=== PATIENT | female | born 1955 | race Caucasian/White ===

== ENCOUNTER 2017-01-10 10:01 | Inpatient (IN) | payer OTHER ==
--- NOTE | ~2017-01-10 | EGD ---
EGD REPORT [facility] [address] [address] NAME: BRENDA ÁLVAREZ : 51 STATUS : ADM IN PAT#: [id number] AGE: 61 ADM/REG DATE : 01/10/17 MR#: [id number] REPORT SERV DATE: 01/11/17 DICTATED BY: DANIE LEMUS DATE: 01/11/17 REPORT STATUS : Draft TRANSCRIBED BY: [facility] DATE: 01/11/17 Endoscopy Center Patient Name: Brenda Álvaerz. Date of : 1955 Attending MD: DANIE LEMUS MD Procedure Date No Time: 01/11/2017 Procedure: Upper EUS Indications: Suspected mass in pancreas on CT scan Medicines: Monitored Anesthesia Care Complications: No immediate complications. Estimated blood loss: Minimal. Procedure: After obtaining informed consent, the endoscope was passed under direct vision. Throughout the procedure, the patient's blood pressure, pulse, and oxygen saturations were monitored continuously. The Endoscope was introduced through the mouth, and advanced to the second part of duodenum. The Endoscope was introduced through the mouth, and advanced to the second part of duodenum. The upper EUS was accomplished without difficulty. The patient tolerated the procedure well. Findings: Endosonographic Finding : There was no sign of significant endosonographic abnormality in the common bile duct which measured 6 mm. No stones and no biliary sludge were identified. There was no sign of significant endosonographic abnormality in the ampulla. No masses were identified. A round mass was identified in the pancreatic body. The mass was hypoechoic. The mass measured 27 mm by 24 mm in maximal cross-sectional diameter. The endosonographic borders were poorly-defined. Fine needle aspiration was performed. Color Doppler imaging was utilized prior to needle puncture to confirm a lack of significant vascular structures within the needle path. Ten passes were made with the 22 gauge needle using a transgastric approach. Some passes were made with a stylet. A content management specialist was present and performed a preliminary cytologic examination. Final cytology results are pending. Estimated blood loss was minimal. The pancreatic duct proximal to the mass was dilated to 7 mm. No other abnormalities seen in the pancreas. A few enlarged lymph nodes were visualized in the celiac region (level 20). The largest measured 7 mm. The nodes were oval, hypoechoic and had well defined margins. Endosonographic imaging of the visualized portion of the liver showed no abnormalities. A limited doppler examination was performed and revealed no significant EGD REPORT [address] [address] NAME: BRENDA ÁLVAREZ : 51 STATUS : ADM IN [facility]#: [id number] AGE: 61 ADM/REG DATE : 01/10/17 MR#: [id number] REPORT SERV DATE: 01/11/17 DICTATED BY: DANIE LEMUS DATE: 01/11/17 REPORT STATUS : Draft TRANSCRIBED BY: [employer] DATE: 01/11/17 vascular abnormalities, although it appeared that the celiac axis was very close/touching the mass that was noted in the pancreas. Impression: - A mass was identified in the pancreatic body. FNA biopsy performed. - A few enlarged lymph nodes were visualized in the celiac region (level 20). Recommendation: - [facility]. - Await cytology results. Procedure Code(s): --- Professional --- 94712, Esophagogastroduodenoscopy, flexible, transoral; with transendoscopic ultrasound-guided intramural or transmural fine needle aspiration/biopsy(s) (includes endoscopic ultrasound examination of the esophagus, stomach, and either the duodenum or a surgically altered stomach where the jejunum is examined distal to the anastomosis) Diagnosis Code(s): --- Professional --- K86.8, Other specified diseases of pancreas R59.0, Localized enlarged lymph nodes R93.3, Abnormal findings on diagnostic imaging of other parts of digestive tract CPT copyright 2013 [employer]. All rights reserved. The codes documented in this report are preliminary and upon study assistant review may be revised to meet current compliance requirements. Danie Lemus MD DANIE LEMUS MD 01/11/2017 11:09 AM This report has been signed electronically. Number of Addenda: 0 Note Initiated On: 01/11/2017 9:52 AM [address] [address]
--- NOTE | ~2017-01-10 | HP ---
History And Physical [address] [facility] [place]. [address] NAME: BALBINA ÁLVAREZ : 51 STATUS : ADM IN PAT#: [id number] AGE: 61 ADM/REG DATE : 01/10/17 MR#: [id number] REPORT SERV DATE: 01/10/17 DICTATED BY: DATE: REPORT STATUS : Draft TRANSCRIBED BY: MODL DATE: 01/10/17 DATE OF ADMISSION: 01/10/2017 POINT OF ENTRY: Transfer from [facility]. CHIEF COMPLAINT: New diagnosis of pancreatic mass, highly suspicious for pancreatic carcinoma. GI consult to include EUS/biopsy. PRIMARY CARE PHYSICIAN: Dr. Dayday Álvarez, [place], [place]. PRIMARY PAIN MANAGEMENT PHYSICIAN: Dr. Dayday Bocanegra, [place], [place]. HISTORY OF PRESENTING ILLNESS: The patient's history was obtained through interviewing the patient with assistance through video remote interpreting as the patient suffers from complete hearing loss coupled with review of medical records provided by [facility]. The patient is a 61-year-old female who presented to [facility] on 01/08/2017 with complaints of severe abdominal pain. The patient described the pain as midepigastric, radiating to her back, accompanied by nausea and vomiting. The patient also reported unintentional weight loss of approximately 50 pounds over the past several months. A CT of the abdomen and pelvis obtained at [facility] prior to transfer reported a 5 x 3.2 cm proximal pancreatic body mass lesion with distal pancreatic ductal dilatation. Findings presumed to represent pancreatic carcinoma until proven otherwise. There is clear encasement of the celiac artery extending towards the superior mesenteric artery without definite encasement. The patient was transferred to [facility] for further diagnostic evaluation regarding suspected pancreatic carcinoma. The patient reported suffering from "very mild" abdominal discomfort over the past several months that has continued to progressively worsen. The patient stated she was diagnosed with "an ulcer" and was sent to Pain Management for further treatment. The patient stated that pain management was ineffective and the abdominal pain became unmanageable despite home pain medications. The patient now describes upper abdominal pain radiating through to back as severe and uncontrolled. The patient also reported persistent nausea with intermittent vomiting and significantly decreased appetite. The patient states she has lost approximately 50 pounds over the past several months with 20 of those pounds having been lost over the past two weeks secondary to inability to consume oral intake without severe nausea and vomiting. REVIEW OF SYSTEMS: CONSTITUTIONAL: No recent fever or sweats. Positive for unintentional weight loss of approximately 50 pounds over the past several months. History And Physical [address] [place]. [address] NAME: BALBINA ÁLVAREZ : 51 STATUS : ADM IN [facility]#: [id number] AGE: 61 ADM/REG DATE : 01/10/17 MR#: [id number] REPORT SERV DATE: 01/10/17 DICTATED BY: DATE: REPORT STATUS : Draft TRANSCRIBED BY: MODL DATE: 01/10/17 EYES: No blurred or double vision. No glaucoma or cataracts. HENT: Positive for complete hearing loss since age 1 or 1 years old. CARDIOVASCULAR: No chest pain, palpitations, syncopal or near syncopal episodes. RESPIRATORY: No recent cough, wheezing, or upper respiratory infection. GASTROINTESTINAL: Positive for nausea with intermittent vomiting and intractable upper abdominal pain times several weeks. No melena, hematochezia, or diarrhea. Positive for opioid-induced constipation. MUSCULOSKELETAL: Positive rheumatoid arthritis, chronic low back pain. INTEGUMENT: Negative for rash or nonhealing wounds. NEUROLOGIC: No history of stroke, TIA, seizure, or gait disturbance. HEMATOLOGIC: No history of anemia. PSYCHIATRIC: History of anxiety. : No dysuria or hematuria. ENDOCRINE: Positive for thyroid disease, history of goiter. HOME MEDICATIONS: 1. Xanax 0.5 mg tablet p.o. twice daily. 2. Super B complex tablet one tablet p.o. daily. 3. Vitamin B12 at 1000 mcg tablet p.o. daily. 4. Valium 5 mg tablet p.o. daily. 5. Premarin 0.3 mg tablet p.o. daily. 6. Levothyroxine 175 mcg tablet p.o. daily. 7. Movantik 25 mg tablet p.o. daily. 8. Roxicodone 15 mg tablet p.o. every four hours as needed. 9. Iron 360 one tab p.o. daily. ALLERGIES: NO KNOWN MEDICATION ALLERGIES. SOCIAL HISTORY: The patient has been for 37 years. She and her suffer from complete hearing loss. They have three children. The patient is retired from [email or web address]. The patient denies ever having used tobacco or alcohol. FAMILY HISTORY: The patient's mother is 85 years old. The patient has been estranged for approximately two years. Health history is unknown. The patient's father at age 56 due to suicide. The patient has one brother with leukemia. PAST MEDICAL HISTORY: 1. Anxiety. 2. Chronic pain related to back and rheumatoid arthritis. 3. Opioid-induced constipation. 4. Hypothyroidism with history of goiter. 5. Deafness. 6. Rheumatoid arthritis. 7. Back pain. 8. Goiter in 1988. 9. Unintentional weight loss. History And Physical [address] [address] NAME: BALBINA ÁLVAREZ : 51 STATUS : ADM IN [facility]#: [id number] AGE: 61 ADM/REG DATE : 01/10/17 MR#: [id number] REPORT SERV DATE: 01/10/17 DICTATED BY: DATE: REPORT STATUS : Draft TRANSCRIBED BY: MODL DATE: 01/10/17 PAST SURGICAL HISTORY: 1. Cholecystectomy. 2. Back surgery in 2004. 3. Ankle surgery in 1993 and 1994, right ankle. 4. Left knee replacement in 2006. 5. The patient is pending back surgery under the care of Dr. Timo Thomas. LABORATORY DATA: Laboratory tests to include CBC, PT/PTT, CMP, magnesium, phosphorus, TSH pending. ASSESSMENT AND PLAN: 1. Suspected pancreatic carcinoma. CT of abdomen and pelvis obtained at [facility] on 01/07/2017 reported 5 x 3.2 cm proximal pancreatic body mass lesion with distal pancreatic ductal dilatation with clear encasement of the celiac artery extending towards SMA without definite encasement. Carcinoembryonic antigen was obtained on 01/09/2017, result was reported to be elevated at 5.0. Cancer antigen 19-9 was also obtained at [facility] prior to transfer and lab result has been requested. GI has been consulted for EUS/biopsy as part of diagnostic workup for definitive diagnosis in the setting of new pancreatic mass. Mesenteric Doppler is pending due to CT of abdomen and pelvis reporting clear encasement of celiac artery extending towards the SMA. Vascular Surgery will be consulted if indicated per mesenteric Doppler results. Based on definitive diagnosis, Oncology may also be consulted during this admission. 2. Intractable upper abdominal pain. This is most likely related to pancreatic mass. The patient is n.p.o. for now pending mesenteric Doppler and EUS/biopsy. Clear liquid diet will be resumed once n.p.o. status has been discontinued. The patient will receive p.o. and IV pain medications as needed to gain reasonable pain control. 3. Nausea with intermittent vomiting. This is most likely secondary to abdominal pain in the setting of new diagnosis of pancreatic mass. Antiemetics will be available as needed to assist in controlling these symptoms. 4. History of dysphagia. The patient underwent a barium swallow on 12/01/2015, result was negative and the patient was cleared for regular diet at that time. 5. Chronic anxiety. Continue home medications to include Xanax and Valium. 6. Chronic pain. This is multifactorial to include intractable abdominal pain over the past several weeks, chronic back pain, and rheumatoid arthritis. The patient is under the outpatient care of Dr. Bocanegra in [place], [place]. The patient is currently on Roxicodone every four hours as needed. The patient states she was also on hydrocodone but that medication was discontinued per her request on 12/20/2016 secondary to ongoing constipation. 7. Unintentional weight loss. The patient reports 50-pound weight loss over the past several months with 20 of those pounds occurring over the past two weeks. This is related to inability to maintain adequate oral intake secondary to nausea, increased abdominal pain associated with eating and intermittent vomiting. Nutrition has been consulted. I's and O's will be obtained daily along with weights. Clear liquid diet for now. May need to assess for alternative means of nutrition depending on definitive diagnosis. 8. Deep venous thrombosis prophylaxis. Knee-high LEANDRA hose for now pending procedures, History And Physical [address] [address] NAME: BALBINA ÁLVAREZ : 51 STATUS : ADM IN [facility]#: [id number] AGE: 61 ADM/REG DATE : 01/10/17 MR#: [id number] REPORT SERV DATE: 01/10/17 DICTATED BY: DATE: REPORT STATUS : Draft TRANSCRIBED BY: ALESSANDRA DATE: 01/10/17 then transition to heparin. 9. Opioid-induced constipation. Continue the patient's home dose of Movantik. The care of this patient will be transferred to the service of Dr. Dominic John. [facility]/ALESSANDRA ZHEN August / [id number] CC: Dominic John II, MD
--- NOTE | ~2017-01-10 | DS ---
Discharge Summary [address] [place]. [address] NAME: BALBINA KATZ : 51 STATUS : DIS IN PAT#: [id number] AGE: 61 ADM/REG DATE : 01/10/17 MR#: [id number] REPORT SERV DATE: 01/14/17 DICTATED BY: DATE: REPORT STATUS : Draft TRANSCRIBED BY: MODL DATE: 01/13/17 ADMISSION DATE: 01/10/2017 DISCHARGE DATE: 01/13/2017 DISCHARGE DIAGNOSES: 1. Pancreatic cancer, new diagnosis. 2. Intractable abdominal pain. 3. Type 2 diabetes mellitus, new diagnosis. 4. Chronic pain. 5. Constipation, resolved. 6. Complete hearing loss. 7. Hypothyroidism, chronic. 8. Anxiety, chronic. CONSULTATIONS: 1. Dr. Norbert Frederick, [facility], 01/12/2017. 2. Dr. Head, Gastroenterology. PERTINENT TESTS AND PROCEDURES: 1. Upper EUS 01/11/2017, impression: Mass identified in the pancreatic body. FNA biopsy performed. A few enlarged lymph nodes were visualized in the celiac region. 2. Mesenteric Doppler 01/10/2017, impression: No Doppler evidence of mesenteric ischemia. 3. KUB 01/12/2017, impression: No acute intraabdominal process. Bowel gas pattern is normal. No organomegaly or soft tissue mass is seen. 4. CT of the abdomen, pelvis, and chest with and without contrast, 01/13/2017, impression:. a. 4.6 cm pancreatic body mass engulfs SMV, the celiac artery, and the proximal hepatic and splenic arteries. There are small metastatic nodes adjacent. No hepatic metastatic disease or other metastasis demonstrated. b. Left breast nodules, for which correlation with mammogram and ultrasound are recommended. c. Fluid density abnormality at the T5 through T6 level, right paraspinous likely represents a benign neurenteric cyst. POINT OF ENTRY: Transfer from [facility]. CHIEF COMPLAINT UPON ADMISSION: New diagnosis of pancreatic mass highly suspicious for pancreatic carcinoma. GI consult to include EUS/biopsy. HOSPITAL COURSE: Please refer to history and physical dated 01/10/2017 provided by Aida Sullivan, nurse practitioner, for complete details pertaining to patient's initial presentation upon admission and health history. Please also refer to consultation dated 01/12/[address] Norbert Frederick. Briefly, the patient is a 61-year-old female with a past medical history to include Discharge Summary [address] [address] NAME: BALBINA KATZ : 51 STATUS : DIS IN PAT#: [id number] AGE: 61 ADM/REG DATE : 01/10/17 MR#: [id number] REPORT SERV DATE: 01/14/17 DICTATED BY: DATE: REPORT STATUS : Draft TRANSCRIBED BY: MODL DATE: 01/13/17 rheumatoid arthritis, hypothyroidism, chronic back pain, chronic anxiety, and complete hearing loss, who developed abdominal pain approximately two to three months prior to this admission. The patient presented to [facility] where she had a CT scan that showed a 5 x 3 x 2 cm proximal pancreatic body mass causing distal pancreatic ductal dilatation consistent with pancreatic carcinoma. There was also concern for encasement of the celiac artery extending toward the superior mesenteric artery without definite encasement. The patient was transferred to [facility] for further evaluation and treatment to include GI consult and EUS with biopsy. 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 Dr. Norbert Frederick, [facility] was consulted for abdominal pain and pancreatic cancer. Diagnostic evaluation included repeat CT of the abdomen and pelvis with pancreatic protocol to better evaluate the extent of the mass. A CT of the chest to rule out lung metastasis was also obtained. CT scan results reported pancreatic mass clearly encasing major vessels. This mass is not resectable and therefore not curable. Initial consultation requested for Dr. Hoffman of Surgical Oncology to see was canceled secondary to findings on repeat CT. Dr. Frederick met with the patient and family to discuss findings of CT scan. The patient will be discharged home today. The patient will meet with family at home over the next couple of weeks to discuss the patient's wishes for future plan of care. The patient will follow up with Dr. Frederick at [facility] in two weeks. 1. Pancreatic cancer. This is a new diagnosis during this admission. The patient has a pancreatic mass encasing major vessels. Mass is not resectable, therefore not curative. The patient will DC home today and follow up with Dr. Frederick in two weeks. Future care plan may include trial of chemotherapy; however, patient is undecided at this time. 2. Intractable abdominal pain. The patient did not tolerate Dilaudid TITLE I COORDINATOR pump due to increased nausea. The patient will be discharged home with prescription for MS Contin 15 mg tablet p.o. every 12 hours and oxycodone 15 mg immediate release every four hours as needed for breakthrough pain. At the time of discharge, the patient's pain is adequately controlled on this regimen. 3. Type 2 diabetes mellitus. The patient had no history of diabetes. This is a new diagnosis during this admission. A1c was reported to be 10.8. Blood glucoses range between 140 and 180. Onset is possibly related to pancreatic disease. The patient was provided prescription for metformin 500 mg p.o. b.i.d., and is to follow up with PCP of her choice within two weeks for continued management. 4. Chronic pain. This is multifactorial to include abdominal pain related to pancreatic cancer, history of rheumatoid arthritis, and back issues. The patient has chronic-back issues and was pending surgery per Dr. Timo Thomas before this admission. Continue pain medications as needed. 5. Constipation, resolved. This is opioid induced. Continue aggressive bowel regimen at Discharge Summary [address] [place]. [address] NAME: BALBINA KATZ : 51 STATUS : DIS IN PAT#: [id number] AGE: 61 ADM/REG DATE : 01/10/17 MR#: [id number] REPORT SERV DATE: 01/14/17 DICTATED BY: DATE: REPORT STATUS : Draft TRANSCRIBED BY: ALESSANDRA DATE: 01/13/17 home to avoid future opioid induced constipation. 6. Complete hearing loss. The patient was provided live binder stripper machine or video remote binder stripper machine during each rounding visit during this admission. 7. Hypothyroidism, chronic. Continue home dose of levothyroxine. 8. Chronic anxiety. Continue home medications. DISCHARGE CONDITION: At the time of discharge, the patient is hemodynamically stable. DISCHARGE DIET: Clear liquid diet. Advance as tolerated. The patient instructed to consume foods that she can digest without increasing nausea. The patient will have difficult time adhering to strict ADA diet due to intractable abdominal pain and nausea. DISCHARGE MEDICATIONS: 1. Xanax 0.5 mg tablet p.o. twice daily. 2. Vitamin B12 of 1000 mcg tablet p.o. daily. 3. Levothyroxine 175 mcg tablet p.o. daily. 4. Movantik 25 mg tablet p.o. daily. 5. MiraLAX 17 g p.o. daily. 6. Tylenol 325 mg tablet, take two tablets p.o. every four hours as needed. 7. Valium 5 mg tablet p.o. daily as needed. 8. Zofran 4 mg tablet p.o. every four hours as needed. 9. Senokot two tablets p.o. at bedtime as needed. 10.Roxicodone 15 mg tablet p.o. every four hours as needed for moderate to severe breakthrough pain, hold for sedation. 11.Estrogen conjugated 0.3 mg tablet, do not take this medication due to new diagnosis of pancreatic cancer. 12.Iron 360 one tab p.o. daily. 13.Super B Complex 1 tablet p.o. daily. 14.MS Contin 15 mg tablet p.o. every 12 hours. 15.Oxycodone 15 mg tablet p.o. every four hours as needed. DISCHARGE INSTRUCTIONS: 1. Follow up with Dr. Frederick, [facility] in two weeks. 2. Follow up with primary care provider of patient's choice to manage new diagnosis of type 2 diabetes. PRIMARY ONCOLOGIST: Dr. Norbert Frederick. PRIMARY PAIN MANAGEMENT: Dr. Bocanegra [place], [place]. DICTATED BY: ZHEN August [facility]/ALESSANDRA Discharge Summary [address] [address] NAME: BALBINA KATZ : 51 STATUS : DIS IN PAT#: [id number] AGE: 61 ADM/REG DATE : 01/10/17 MR#: [id number] REPORT SERV DATE: 01/14/17 DICTATED BY: DATE: REPORT STATUS : Draft TRANSCRIBED BY: MODL DATE: 01/13/17 ZHEN August / [id number] CC: MD Dayday Hawkins II, M.D.
--- NOTE | ~2017-01-10 | CN ---
Consultation Report [facility] [address] [place]. [address] NAME: BALBINA ÁLVAREZ : 51 STATUS : ADM IN PAT#: [id number] AGE: 61 ADM/REG DATE : 01/10/17 MR#: [id number] REPORT SERV DATE: 01/12/17 DICTATED BY: NORBERT FREDERICK DATE: 01/12/17 REPORT STATUS : Draft TRANSCRIBED BY: MODL DATE: 01/12/17 HEMATOLOGY/ONCOLOGY INITIAL CONSULTATION DATE OF CONSULTATION: 01/12/2017 Consult regarding pancreatic cancer. CHIEF COMPLAINT: Abdominal pain and pancreatic cancer. HISTORY OF PRESENT ILLNESS: Ms. Álvarez is a pleasant 61-year-old white woman with past medical history of rheumatoid arthritis, hypothyroidism, and chronic back pain, who developed abdominal pain starting approximately two to three months ago. The pain is located in the epigastric and periumbilical area radiating to her back. The pain has progressively worsened prompting her to see her primary care physician several times. She was initially diagnosed with an ulcer, but the pain did not improve with treatment. She went to [facility], where she had a CT. The CT showed a 5 x 3.2 cm proximal pancreatic body mass causing distal pancreatic ductal dilation consistent with pancreatic carcinoma. There is encasement of the celiac artery extending toward the superior mesenteric artery without definite encasement. There are also prominent lymph nodes in the peripancreatic area that could be involved with metastatic carcinoma. The patient was transferred to [facility] for endoscopic ultrasound and biopsy. She had the endoscopic ultrasound performed on 01/11/2017 showing a 27 x 24 mm pancreatic body mass with borders that are poorly defined. A Doppler examination was performed and showed no significant vascular abnormalities, although the mass does appear to encroach and is very close or touches the celiac axis. No encasement seen. A few enlarged lymph nodes were visualized. A biopsy was performed and preliminary results are positive for pancreatic adenocarcinoma. Oncology is consulted for her newly diagnosed pancreatic cancer. Currently Ms. Álvarez continues to report uncontrolled abdominal pain. She had to be placed on a Dilaudid CUPOLA TENDER HELPER today. She was recently started on the medication and the pain is certainly improved currently. She has also been seen by Palliative Care, who is helping manage her pain. She reports some nausea and poor appetite over the past approximately three months with a 50-pound weight loss over that period of time. She denies diarrhea and is currently experiencing constipation. She denies cough, shortness of breath, chest pain, pruritus, jaundice, lower extremity swelling, headaches, or vision change. Her rheumatoid arthritis has been stable. She has been taking oxycodone for her chronic pain, managed by Pain Management. She has had opioid-induced constipation and has been on Movantik. She also has history of anxiety, which has been stable despite this difficult diagnosis. PAST MEDICAL HISTORY: 1. Rheumatoid arthritis. 2. Hypothyroidism. 3. Chronic pain related to back and rheumatoid arthritis. 4. Opioid-induced constipation. 5. Deafness, anxiety. Consultation Report [address] [place]. [address] NAME: BALBINA ÁLVAREZ : 51 STATUS : ADM IN [facility]#: [id number] AGE: 61 ADM/REG DATE : 01/10/17 MR#: [id number] REPORT SERV DATE: 01/12/17 DICTATED BY: NORBERT FREDERICK DATE: 01/12/17 REPORT STATUS : Draft TRANSCRIBED BY: ALESSANDRA DATE: 01/12/17 6. Hyperglycemia with possible diabetes. PAST SURGICAL HISTORY: 1. Cholecystectomy. 2. Back surgery in 2004. 3. Ankle surgery in 1993 and 1994. 4. Left knee replacement in 2006. 5. Pending back surgery under the care of Dr. Timo Thomas. FAMILY HISTORY: The patient's father at 56 from suicide. The patient's brother from leukemia. No other history of cancer in the family. SOCIAL HISTORY: She is . She has three children. She is retired from [email or web address]. The patient denies tobacco, alcohol, or illicit drug use. REVIEW OF SYSTEMS: A comprehensive review of systems in 12 or more systems was performed and was negative except for abdominal pain, nausea, anorexia, weight loss, constipation, and anxiety/depression. PHYSICAL EXAMINATION: VITAL SIGNS: Temperature 97.6, pulse 97, respirations 18, blood pressure 147/67, pulse ox of 92% on room air. GENERAL: A pleasant, well-developed, obese, but with recent weight loss white woman in no acute distress. HEENT: Pupils equal, round, and reactive to light. Extraocular movements were intact. Conjunctivae and lids normal. Sclerae anicteric. Moist mucous membranes. Oropharynx clear without exudate, masses, mucositis, or thrush. NECK: Supple. No JVD. Trachea midline. LYMPHATICS: No cervical, supraclavicular, or axillary lymphadenopathy. CHEST: Normal respiratory effort. Clear to auscultation bilaterally without wheezes, rhonchi, or crackles. CARDIOVASCULAR: Regular rate and rhythm. No murmurs, rubs, or gallops. ABDOMEN: Soft. Tender to palpation in the epigastric/periumbilical area. Nondistended. Positive bowel sounds. No clubbing, cyanosis, or edema. SKIN: Warm, dry, intact. No rashes or ecchymoses visualized. No palpable nodules. NEUROLOGIC: Awake alert, oriented. Sensation intact. Strength intact. No focal deficits. PSYCHIATRIC: Awake, alert, and oriented. Appropriate mood and insight. Verbalized understanding of our conversation. LABORATORY DATA: BUN of 3, creatinine of 0.58. CMP, total bilirubin of 0.9. CBC; white blood cell count 6500, hemoglobin 14.6 g/dL, hematocrit 44.5%, platelets of 255,000. CA19-9 at [facility] was reportedly 915. ASSESSMENT AND PLAN: Ms. Álvarez is a 61-year-old white woman with rheumatoid arthritis, Consultation Report [address] [address] NAME: BALBINA ÁLVAREZ : 51 STATUS : ADM IN [facility]#: [id number] AGE: 61 ADM/REG DATE : 01/10/17 MR#: [id number] REPORT SERV DATE: 01/12/17 DICTATED BY: NORBERT FREDERICK DATE: 01/12/17 REPORT STATUS : Draft TRANSCRIBED BY: ALESSANDRA DATE: 01/12/17 hypothyroidism, and chronic back pain, who presented for abdominal pain. Found to have a pancreatic mass that was biopsied consistent with pancreatic cancer prompting consultation. 1. Pancreatic cancer: I have reviewed Ms. Álvarez's records including notes, labs, imaging reports. I personally reviewed her CT images from [facility], which shows a pancreatic body mass that comes close to the celiac axis, but cannot definitively identify encasement. The EUS suggests the tumor abuts the celiac axis without involvement and possible lymph node involvement. If there is no encasement, then the staging would be 2b, and so resectable. I will repeat a CT of the abdomen and pelvis with pancreatic protocol to better evaluate the extent of the mass. We will also get a CT of the chest to rule out lung metastases. I will consult Dr. Hoffman of Surgical Oncology to see if she is a surgical candidate. Hopefully, she will still be a surgical candidate and can give neoadjuvant chemotherapy followed by surgery. We will continue to follow. 2. Pain. Ms. Álvarez's pain was not well controlled and is now on a Dilaudid CUPOLA TENDER HELPER. She is doing much better at this time, but will still talk with GI about a celiac plexus block. I appreciate the consult and allowing me to take part in Ms. Álvarez's care. BRN/MODL Norbert Frederick MD / [id number] CC: MD Dayday Hawkins II, M.D.
[2017-01-10] MEDS ORDERED: X5 PO (11:40)
[2017-01-10] MEDS ORDERED: MOVANTIK25 MG PO (11:40)
[2017-01-10] MEDS ORDERED: ROXICODONE15 MG PO (11:40)
[2017-01-10] MEDS ORDERED: V5 PO (11:40)
[2017-01-10] MEDS ORDERED: LEVOTHYROXIN175 MCG PO (11:41)
[2017-01-10] MEDS ORDERED: SUPER B COMP PO (11:41)
[2017-01-10] MEDS ORDERED: IRON PO (11:41)
[2017-01-10] MEDS ORDERED: PREM.3B PO (11:41)
[2017-01-10] MEDS ORDERED: CYANO1000T PO (11:41)
[2017-01-10 12:57] LABS: BASOPHILS 0.3 %; BASOPHILS ABSOLUTE 0.02 10/3/uL (0.0-0.16); EOSINOPHILS 1.3 %; EOSINOPHILS ABSOLUTE 0.08 10/3/uL (0.0-0.53); HEMATOCRIT 44.9 % (36.0-48.0); HEMOGLOBIN 14.8 g/dL (12.0-16.0); IMMATURE GRANULOCYTES 0.2 %; IMMATURE GRANULOCYTES ABSOLUTE 0.01 10/3/uL (0.0-0.11); LYMPHOCYTES 40.3 %; LYMPHOCYTES ABSOLUTE 2.55 10/3/uL (0.67-4.30); MEAN CORPUSCULAR HEMOGLOB 28.7 pg (26.0-34.0); MEAN CORPUSCULAR VOLUME 87.2 fL (80-100); MONOCYTES 7.9 %; NEUTROPHILS ABSOLUTE 3.17 10/3/uL (2.02-8.40); PLATELET COUNT 219 10/3/uL (150-400); RBC DISTRIBUTION WIDTH 13.6 % (12.0-16.0); RED CELL COUNT 5.15 10/6/uL (4.0-5.6); WHITE BLOOD CELLS 6.3 10/3/uL (4.5-10.5)
[2017-01-10 12:59] LABS: MANUAL DIFF NO %
[2017-01-10 13:07] LABS: PROTIME (NOT ORD) 13.1 SEC (12.0-14.5)
[2017-01-10 13:20] LABS: A/G RATIO 1.1 (0.7-1.9); ALBUMIN 3.5 G/DL (3.5-5.0); ALKALINE PHOSPHATASE 85 U/L (45-117); BUN (BLOOD UREA NITROGEN) 3 MG/DL (6-23); CALCIUM, SERUM 8.7 MG/DL (8.5-10.4); CHLORIDE, SERUM 105 MMOL/L (96-112); CO2 (CARBON DIOXIDE) 33 MMOL/L (24-34); CREATININE 0.57 MG/DL (0.55-1.02); GFR AFRICAN AMERICAN 114 ML/MIN (>=60); GFR NON AFRICAN AMERICAN 99 ML/MIN (>=60); GLOBULIN 3.2 G/DL (2.5-4.1); GLUCOSE, SERUM 174 MG/DL (60-99); PHOSPHORUS, SERUM 3.6 MG/DL (2.5-4.5); POTASSIUM, SERUM 4.4 MMOL/L (3.5-5.3); SGOT(AST) 22 U/L (5-40); SGPT(ALT) 37 U/L (5-65); SODIUM, SERUM 142 MMOL/L (135-148); TOTAL BILIRUBIN 0.9 MG/DL (0-1.2); TOTAL PROTEIN 6.7 G/DL (6.0-8.5); ULTRASENSITIVE TSH 0.704 MCIU/ML (0.358-3.740)
[2017-01-11 06:32] LABS: BASOPHILS 0.3 %; BASOPHILS ABSOLUTE 0.02 10/3/uL (0.0-0.16); EOSINOPHILS 2.6 %; EOSINOPHILS ABSOLUTE 0.15 10/3/uL (0.0-0.53); HEMATOCRIT 44.8 % (36.0-48.0); HEMOGLOBIN 14.7 g/dL (12.0-16.0); IMMATURE GRANULOCYTES 0.2 %; IMMATURE GRANULOCYTES ABSOLUTE 0.01 10/3/uL (0.0-0.11); LYMPHOCYTES ABSOLUTE 2.67 10/3/uL (0.67-4.30); MANUAL DIFF NO %; MEAN CORPUS HGB CONC 32.8 g/dL (32.0-36.0); MEAN CORPUSCULAR HEMOGLOB 28.9 pg (26.0-34.0); MEAN PLATELET VOLUME 10.4 fL (9.2-13.0); MONOCYTES ABSOLUTE 0.64 10/3/uL (0.21-1.20); NEUTROPHILS 39.9 %; NEUTROPHILS ABSOLUTE 2.32 10/3/uL (2.02-8.40); PLATELET COUNT 234 10/3/uL (150-400); RBC DISTRIBUTION WIDTH 13.6 % (12.0-16.0); RED CELL COUNT 5.09 10/6/uL (4.0-5.6); WHITE BLOOD CELLS 5.8 10/3/uL (4.5-10.5)
[2017-01-11 06:49] LABS: BUN (BLOOD UREA NITROGEN) 4 MG/DL (6-23); CALCIUM, SERUM 8.5 MG/DL (8.5-10.4); CHLORIDE, SERUM 106 MMOL/L (96-112); CO2 (CARBON DIOXIDE) 30 MMOL/L (24-34); CREATININE 0.53 MG/DL (0.55-1.02); GFR AFRICAN AMERICAN 117 ML/MIN (>=60); GFR NON AFRICAN AMERICAN 101 ML/MIN (>=60); GLUCOSE, SERUM 158 MG/DL (60-99); POTASSIUM, SERUM 3.6 MMOL/L (3.5-5.3); SODIUM, SERUM 140 MMOL/L (135-148)
[2017-01-12 05:08] LABS: BASOPHILS 0.3 %; BASOPHILS ABSOLUTE 0.02 10/3/uL (0.0-0.16); EOSINOPHILS 2.4 %; EOSINOPHILS ABSOLUTE 0.16 10/3/uL (0.0-0.53); HEMATOCRIT 44.5 % (36.0-48.0); HEMOGLOBIN 14.6 g/dL (12.0-16.0); LYMPHOCYTES 40.5 %; LYMPHOCYTES ABSOLUTE 2.65 10/3/uL (0.67-4.30); MEAN CORPUS HGB CONC 32.8 g/dL (32.0-36.0); MEAN CORPUSCULAR VOLUME 88.5 fL (80-100); MEAN PLATELET VOLUME 10.6 fL (9.2-13.0); MONOCYTES 9.9 %; MONOCYTES ABSOLUTE 0.65 10/3/uL (0.21-1.20); NEUTROPHILS 46.9 %; NEUTROPHILS ABSOLUTE 3.06 10/3/uL (2.02-8.40); PLATELET COUNT 255 10/3/uL (150-400); RBC DISTRIBUTION WIDTH 13.8 % (12.0-16.0); RED CELL COUNT 5.03 10/6/uL (4.0-5.6); WHITE BLOOD CELLS 6.5 10/3/uL (4.5-10.5)
[2017-01-12 05:16] LABS: BUN (BLOOD UREA NITROGEN) 3 MG/DL (6-23); CALCIUM, SERUM 8.1 MG/DL (8.5-10.4); CHLORIDE, SERUM 104 MMOL/L (96-112); CREATININE 0.58 MG/DL (0.55-1.02); GFR AFRICAN AMERICAN 114 ML/MIN (>=60); GFR NON AFRICAN AMERICAN 98 ML/MIN (>=60); GLUCOSE, SERUM 189 MG/DL (60-99); POTASSIUM, SERUM 4.3 MMOL/L (3.5-5.3); SODIUM, SERUM 142 MMOL/L (135-148)
[2017-01-12 05:17] LABS: CO2 (CARBON DIOXIDE) 36 MMOL/L (24-34); MANUAL DIFF NO %
[2017-01-13 06:19] LABS: BASOPHILS 0.4 %; BASOPHILS ABSOLUTE 0.02 10/3/uL (0.0-0.16); EOSINOPHILS 2.3 %; EOSINOPHILS ABSOLUTE 0.13 10/3/uL (0.0-0.53); HEMATOCRIT 43.3 % (36.0-48.0); HEMOGLOBIN 14.3 g/dL (12.0-16.0); IMMATURE GRANULOCYTES 0.2 %; IMMATURE GRANULOCYTES ABSOLUTE 0.01 10/3/uL (0.0-0.11); LYMPHOCYTES 44.8 %; LYMPHOCYTES ABSOLUTE 2.51 10/3/uL (0.67-4.30); MEAN CORPUSCULAR HEMOGLOB 28.8 pg (26.0-34.0); MEAN CORPUSCULAR VOLUME 87.3 fL (80-100); MEAN PLATELET VOLUME 10.3 fL (9.2-13.0); MONOCYTES 9.1 %; MONOCYTES ABSOLUTE 0.51 10/3/uL (0.21-1.20); NEUTROPHILS 43.2 %; NEUTROPHILS ABSOLUTE 2.42 10/3/uL (2.02-8.40); PLATELET COUNT 230 10/3/uL (150-400); RBC DISTRIBUTION WIDTH 13.5 % (12.0-16.0); RED CELL COUNT 4.96 10/6/uL (4.0-5.6); WHITE BLOOD CELLS 5.6 10/3/uL (4.5-10.5)
[2017-01-13 06:24] LABS: MANUAL DIFF NO %
[2017-01-13 06:43] LABS: A/G RATIO 1.1 (0.7-1.9); ALBUMIN 3.2 G/DL (3.5-5.0); ALKALINE PHOSPHATASE 96 U/L (45-117); BUN (BLOOD UREA NITROGEN) 2 MG/DL (6-23); CA-19-9 1455.8 U/ML (< 37.0); CALCIUM, SERUM 8.4 MG/DL (8.5-10.4); CHLORIDE, SERUM 105 MMOL/L (96-112); CO2 (CARBON DIOXIDE) 33 MMOL/L (24-34); CREATININE 0.49 MG/DL (0.55-1.02); GFR AFRICAN AMERICAN 120 ML/MIN (>=60); GFR NON AFRICAN AMERICAN 104 ML/MIN (>=60); GLOBULIN 2.9 G/DL (2.5-4.1); GLUCOSE, SERUM 146 MG/DL (60-99); POTASSIUM, SERUM 3.5 MMOL/L (3.5-5.3); SGOT(AST) 25 U/L (5-40); SGPT(ALT) 48 U/L (5-65); SODIUM, SERUM 143 MMOL/L (135-148); TOTAL BILIRUBIN 0.7 MG/DL (0-1.2); TOTAL PROTEIN 6.1 G/DL (6.0-8.5)
[2017-01-13] MEDS ORDERED: MSCONT15 PO (18:01)
[2017-01-13] MEDS ORDERED: MIRALAX POWDER1 PKT PO (18:05)
[2017-01-13] MEDS ORDERED: T PO (18:06)
[2017-01-13] MEDS ORDERED: BISR PR (18:10)
[2017-01-13] MEDS ORDERED: SENTAB PO (18:11)
[2017-01-13] MEDS ORDERED: OXYCONTIN30 MG PO (18:12)
[2017-04-13] MEDS ORDERED: SYNTHROID175 MCG PO (22:54)
[2017-04-13] MEDS ORDERED: XANAX1 MG PO (22:55)
[2017-04-13] MEDS ORDERED: *UNABLE3 (22:56)
[2017-04-14] MEDS ORDERED: ROXICODONE15 MG PO (11:06)
[2017-04-14] MEDS ORDERED: GLUCPH PO (11:06)
[2017-04-14] MEDS ORDERED: CONSTULOSE PO (11:06)
[2017-04-14] MEDS ORDERED: PREM.3B PO (11:07)
[2017-04-14] MEDS ORDERED: ZOFRAN4 PO (11:07)
[2017-04-16] MEDS ORDERED: DSS PO (13:06)
[2017-04-16] MEDS ORDERED: OXYCONTIN30 MG PO (13:08)
[2017-04-16] MEDS ORDERED: MIRALAX POWDER1 PKT PO (13:09)
== END 2017-01-13 18:51 | disposition home or self-care (01) | DRG 437 ==
LOC: 4EA 10:01
PROVIDERS: Internal Medicine Hematology & Oncology; Nurse Practitioner Family
PROC: 0F9G4ZX Drainage of Pancreas, Percutaneous Endoscopic Approach, Diagnostic (ICD-10-PCS; principal; 2017-01-10)
PROC: BF4CZZZ Ultrasonography of Hepatobiliary System, All (ICD-10-PCS; 2017-01-10)
DX: C25.9 Malignant neoplasm of pancreas, unspecified (principal); E03.9 Hypothyroidism, unspecified; E11.9 Type 2 diabetes mellitus without complications; H91.93 Unspecified hearing loss, bilateral; F41.9 Anxiety disorder, unspecified
CPT/HCPCS: 71260; 74000; 74178; 80048; 80053; 83036; 83735; 84100; 84443; 85025; 85610; 85730; 86301; 88172; 88173; 88177; 88305; 93975; A9270-GY; C1725; J1170; J2405; J2550; Q9967